=== PATIENT | male | born 1990 | race Caucasian/White ===

== ENCOUNTER 2020-11-20 08:06 | Emergency (ER) | payer SELFPAY ==
--- NOTE | 2020-11-20 08:28 | ED_ITS ---
HPI - COVID General: Chief Complaint: COVID symptoms Stated Complaint: covid +, covid symptoms Time Seen by Provider: 11/20/20 08:08 Source: patient Mode of arrival: ambulatory Limitations: no limitations Triage information: Has fever, cough or shortness of breath . History of Present Illness: HPI Narrative: Patient is a nice 30-year-old male who presents to ED today stating he is COVID positive and having shortness of breath, nonproductive cough, fatigue, and body aches. He states symptoms started 11/14 with positive COVID test on 11/15 from [facility]. Patient has no significant PMH and currently takes no medications. MD complaint: known COVID positive Prior covid testing: yes, results known Prior testing date: 11/15/20 COVID 19 common symptoms: positive non-productive cough, dyspnea, fatigue and b sánchez aches; negative fever(s), headache(s), throat pain, nasal congestion, nausea, vomiting or diarrhea COVID 19 other sytmptoms: negative chest pain Treatment prior to arrival: none COVID Results: No Data to Display Review of Systems Const: Reports: body aches and fatigue; Denies: fever(s), change in appetite or change in weight Eyes: Denies: change in vision or blurry vision ENMT: Denies: throat pain, odynophagia, nasal discharge or nasal congestion Card: Reports: dyspnea on exertion; Denies: chest pain, palpitations, irregular heart rhythm, edema, swelling of feet/ankles, lightheadedness, syncope, pre-syncope, orthopnea, leg pain with exertion or acrocyanosis Resp: Reports: dyspnea and non-productive cough; Denies: wheezing, pain on inspiration, change in phlegm color, hemoptysis or chest congestion GI: Denies: abdominal pain, nausea, vomiting or diarrhea : Denies: flank pain or dysuria Musc: Denies: neck pain, back pain, extremity pain or joint pain Skin/Breast: Denies: rash Neuro: Denies: headache(s), numbness in extremities, weakness in extremities, sensory changes or dizziness Physical Exam Const: COMMON NORMALS: no acute distress, average body habitus, patient oriented x3, no limitations, healthy appearing, alert and well nourished GENE RAL APPEARANCE: cooperative ORIENTATION/CONSCIOUSNESS: Yes awake, Yes oriented to person, Yes oriented to place and Yes oriented to time HENMT: COMMON NORMALS: normocephalic and atraumatic HEAD & SCALP: normocephalic and atraumatic Resp: COMMON NORMALS: normal respiratory effort and clear to auscultation bilaterally AUSCULTATION: clear to auscultation bilaterally OTHER: dry cough Cardio: COMMON NORMALS: regular rate and regular rhythm RATE: regular rate RHYTHM: regular rhythm Extremity: COMMON NORMALS: no pedal edema Neuro: COMMON NORMALS: patient oriented x3 SENSORIUM/ORIENTATION: Yes alert, Yes oriented to person, Yes oriented to place and Yes oriented to time Course Vital Signs: Vital signs: Vital Signs Temperature 98.2 F 11/20/20 08:38 Pulse Rate 86 11/20/20 08:38 Respiratory Rate 16 11/20/20 08:38 Blood Pressure 142/100 11/20/20 08:38 Pulse Oximetry 98 11/20/20 08:38 MDM - COVID MDM Narrative: Medical decision making narrative: Patient is non-ill and nontoxic appearing. Vital signs are stable. He qualifies for MCA based on [facility] ht. COVID test was performed at [facility] and patient has proof of positive results that were verified by myself. Imaging Data: CXR: Radiologist's impression: [address] [id number] ReportSigned Patient: German Franco #: [id number]: [id number]#:[id number]/Sex: 30 / MADM Date: 11/20/20Loc: [facility]/Bed:Attending Dr: Ordering Provider/Ordering MD: Klaudia Mg Date of Service: 11/20/20 Procedure(s): XR chest 1V portable [id number] Accession Number(s): [id number] Report Number: [id number] WS: [id number] Exam: XR chest 1V portable [id number] Date/Time of Exam: 11/20/2020 8:51 AM Reason For Exam: COVID, cough No priors. Findings: The lungs are clear and fully expanded. Costophrenic angles are sharp. No infiltrates. Bronchovascular relief appears normal. Cardiac silhouette is unremarkable. Bony elements are intact. XR/XR chest 1V portable [id number] IMPRESSION: Unremarkable chest radiograph. Dictated By:Zack Talamantes, DOSigned By:Zack Talamantes, DOSigned Date/Time:11/20/20904DD/ 4 COVID Results: No Data to Display Monoclonal Antibody - ED Inclusion/Exclusion Criteria age >/= 12 years, weight >/= 40kg /88lbs, symptom onset less than 10 days ago and + direct Sars-Cov-2 test less than 7-10 days ago obesity (BMI >25 or 85%til for age) not requiring hospitalization, not requiring oxygen (if not chronically on oxygen) and no increase oxygen requirement (if chronically on oxygen) Patient education patient/family/caregiver received/reviewed fact sheet, Emergency Use Authorization/unapproved drug status discussed with patient/family/caregiver, alternatives to this treatment discussed with patient/family/caregiver, risks and benefits of medication reviewed with patient/family/caregiver, patient/family/caregiver given opportunity for questions, which were answered and patient consents to receiving Monoclonal Antibody Treatment Plan for treatment Meets criteria for Monoclonal Antibody infusion Date of symptom(s) onset: 11/14/20 Ordering Monoclonal Antibody infusion for today Discharge Plan Discharge Patient Disposition: Home Clinical Impression: COVID-19 Condition: Stable Discharge Orders: Discharge ED (Routine); Ordered 11/20/20 Ordered By: Klaudia Mg Referrals: Maykel Masters NP [Primary Care Provider] - Coding Level of Care Code ED Rn Heart for Chg Fwd Exam Detailed
[2020-11-20 08:38] VITALS: BP 142/100; PULSE 86; RESP 16; TEMP 36.8; O2SAT 98; BMI 30.4
--- NOTE | 2020-11-20 08:50 | XR_ITS ---
WS: [id number] Exam: XR chest 1V portable [id number] Date/Time of Exam: 11/20/2020 8:51 AM Reason For Exam: COVID, cough No priors. Findings: The lungs are clear and fully expanded. Costophrenic angles are sharp. No infiltrates. Bronchovascula r relief appears normal. Cardiac silhouette is unremarkable. Bony elements are intact. XR/XR chest 1V portable [id number] IMPRESSION: Unremarkable chest radiograph.
[2020-11-20 09:35] VITALS: PULSE 88; O2SAT 98; O2SAT 99
== END 2020-11-20 09:23 | disposition home or self-care (01) ==
PROVIDERS: Emergency Provider Physician Assistant; PCP Nurse Practitioner Family
DX: U07.1 COVID-19 (principal)
CPT/HCPCS: 71045; 99282

== ENCOUNTER 2020-11-20 10:04 | Outpatient (CLI) | payer SELFPAY ==
[2020-11-20 10:18] VITALS: BP 135/87; PULSE 72; RESP 18; TEMP 36.8; O2SAT 97; BMI 31.6
[2020-11-20 12:02] VITALS: BP 133/89; PULSE 68; RESP 20; TEMP 36.6; O2SAT 97
== END 2020-11-20 10:05 | disposition home or self-care (01) ==
LOC: OPS 10:07
PROVIDERS: PCP Nurse Practitioner Family; Visit Provider Physician Assistant
DX: U07.1 COVID-19 (principal)
CPT/HCPCS: 96365